=== PATIENT | female | born 1960 | race Caucasian/White ===

== ENCOUNTER → 2023-12-12 12:00 | Outpatient (REF) | payer OTHER, SELFPAY | LOC: HWRAD 12:00 | PROVIDERS: ATTENDING PHYSICIAN Family Medicine | DX: Z78.0 Asymptomatic menopausal state (principal) | CPT/HCPCS: 77080 ==

== ENCOUNTER 2024-08-17 02:44 | Inpatient (IN) | payer OTHER, SELFPAY ==
[2024-08-16 19:59] VITALS: BP 129/79; BMI 23.2
--- NOTE | 2024-08-16 20:00 | ED.GENMED ---
History of Present Illness
General
Chief Complaint: Alcohol Problem
Source: patient and ambulance crew
Exam Limitations: none
Time Seen by Provider: 08/16/24 20:00
History of Present Illness
History of Present Illness:
See MDM
Past History
Past History
ED Past Medical History: Fibromyalgia, Psychiatric (Anxiety), Other (DVT PE) and Other (History of migraines, Lyme disease in 2004. Alcohol abuse)
ED Past Surgical History: Cholecystectomy and Gynecological
Social History
Tobacco: Former smoker
Alcohol: Chronic alcoholic (last alcohol intake)
Drug: None
Personal:
Living: with family
Employment: Employed
Family History
Family History: Hypertension and CAD
Phy Exam
Physical Exam
Physical Exam:
See MDM
Scores
Withdrawal Assessment of Alcohol
Withdrawal Assessment Completed?: Not applicable
Course
Orders/Labs/Results
Orders:
Orders
08/16/24 21:21
CR Chest Portable - 1 View Urgent
Comment:
Reason For Exam: cough, hypothermic
Reason Study Needs to be Portable: Patient Unstable
08/16/24 21:53
Complete Blood Count/With Diff Urgent
Comprehensive Metabolic Panel Urgent
Free T4 Urgent
Lactic Acid Q4H
Comment: CANCEL 2nd LACTIC ACID IF 1st LACTIC ACID IS LESS THAN 2
TSH Reflex To Free T4 Urgent
Comment: ADDON
Blood Culture Q30M
CHRIS Source: Blood/Venous
Specimen Description:
Blood Culture Q30M
CHRIS Source: Blood/Venous
Specimen Description:
08/16/24 22:16
Add On- LAB Urgent
Tests Added?: TSH reflex Free T4
08/16/24 22:18
0.9% Sodium Chloride 1000 ml [Nss] 1,000 ml IV BOLUS
08/16/24 23:00
0.9% Sodium Chloride 1000 ml [Nss] 1,000 ml Mvi, Adult [Multivitamin] 10 ml Thiamine Injection 100 mg IV 250 mls/hr
08/16/24 23:46
Ondansetron Injectable [Zofran] 4 mg .ROUTE .STK-MED ONE
Ondansetron Injectable [Zofran] 4 mg IV NOW STA
08/17/24 00:02
CT Abd/pelvis W Iv Cont Urgent
Reason For Exam: hypothermic, abd pain
CT Head W/o Iv Contrast Urgent
Reason For Exam: altered
08/17/24 01:30
Lactic Acid Q4H
Comment: CANCEL 2nd LACTIC ACID IF 1st LACTIC ACID IS LESS THAN 2
08/17/24 01:31
Lorazepam [Ativan] 1 mg IV NOW STA
08/17/24 01:50
Add On- LAB Urgent
Tests Added?: B-hydroxybuterate
Abnormal Lab Results
08/16/24
21:53
WBC 12.0 H 10^3/uL
(4.8-10.8)
MCHC 32.7 L g/dL
(33.0-37.0)
Abs Immat Gran (auto) 0.1 H 10^3/uL
(0-0.05)
Absolute Neuts (auto) 10.7 H 10^3/uL
(1.4-6.5)
Absolute Lymphs (auto) 1.0 L 10^3/uL
(1.2-3.4)
Immature Gran % 0.6 H %
(0-0.5)
Neutrophils % 89.2 H %
(42.2-75.2)
Lymphocytes % 7.9 L %
(20.5-51.1)
Carbon Dioxide 18 L mmol/L
(22-30)
BUN 19 H mg/dl
(7-17)
Lactic Acid 5.5 H* mmol/L
(0.7-2.0)
AST 71 H U/L
(14-36)
Albumin 5.1 H g/dl
(3.5-5.0)
TSH (Reflex) < 0.02 L uIU/ml
(0.47-4.68)
08/16/24 21:53
08/16/24 21:53
Vital Signs
Initial and Last Documented VS:
Initial Vital Signs
Pulse Resp BP Pulse Ox
73 27 129/79 100
08/16/24 19:59 08/16/24 19:59 08/16/24 19:59 08/16/24 19:59
Last Documented Vital Signs
Temp Pulse Resp BP Pulse Ox
97.7 F 79 13 115/66 98
08/17/24 01:19 08/17/24 01:30 08/17/24 01:30 08/17/24 01:14 08/17/24 01:30
MDM/Problems Addressed
Differential Diagnosis Includes:
HPI and MDM Narrative:
64-year-old female presenting by EMS for evaluation of intoxication. Patient states she drank too much tequila today and did not feel well so she called 911. Patient denies any trauma. On exam, she is clearly intoxicated. She denies any
significant complaint other than 'not feeling well'
Physical exam
General: Intoxicated but answering questions and holding a conversation
HEENT: protecting airway. No evidence of trauma
Neck: supple
CV: No evidence of cyanosis
Resp: No accessory muscle use
Abd: Non-distended
Extremities: No deformities
Neuro: alert
Psych: Anxious
Skin: Cool
Problems Addressed including Acute and Chronic Conditions affecting care:
1. Alcohol intoxication
Acuity: acute
Prognosis: stable
Details: No evidence of trauma. Will continue to monitor
2. Hypothermic
Acuity: acute
Prognosis: unstable
Details: Patient requiring Penny hugger
Updates
On arrival, patient found to be hypothermic requiring the bear hugger. Will obtain basic blood work including lactic acid. Will look for signs of infection
10:20 PM patient shown to have significant lab issues such as a lactic acid of 5.5. at bedside states that she is recovering alcoholic. Patient admits to excessive alcohol use today and did not eat. There is a concern that she has alcohol
ketoacidosis. Will start banana bag and obtain CT
Differential Diagnosis (but not limited to): Alcohol intoxication, depression, anxiety, alcohol ketoacidosis, sepsis
Testing considered: CT head but she denies head trauma
Drug therapy (if applicable): OTC meds, please see d/c instruction regarding Rx drugs
Amount and/or Complexity of Data Reviewed
Clinical info obtained from: Patient and EMS
External data reviewed: N/A
Labs I independently reviewed (but not limited to): [Elevated lactic acid
Radiology: The CT scan was personally and independently reviewed. In addition, official CT report reviewed.
X-ray independently reviewed: Chest x-ray clear
Pulse Ox: not hypoxic
EKG independently reviewed: N/A
Able Bodied Tankerman: Sinus rhythm
Critical Care: N/A
Risk of Complication:
Social Determinants of health: Good social support
Discussed with other providers: Hospitalist
Escalation of Care includes Admit/Obs: given her hypothermia and lab abnormalities, will admit
Occasional wrong word or 'sound a like' substitutions may have occurred due to the inherent limitations of voice recognition software. Read the chart carefully and recognize, using context, where substitutions have occurred.
*Critical Care Note
Total Time (30-74mins, 75-104mins- exclusive of procedures): Not Applicable
ED Attending Note
-
Portions of this chart may have been created with voice recognition software.� Occasional wrong word or��sound alike� substitutions may have occurred due to the inherent limitations of voice recognition software.
Discharge Plan
Departure
Patient Disposition: Admit
Date of Disposition: 08/17/24
Time of Disposition: 01:51
Presentation/result/management discussed w/ accepting MD/DO: Hospitalist
Discharge Problem:
Hypothermia, Alcohol intoxication
Prescriptions:
No Action
biotin 1 MG tablet
1 mg PO DAILY
sumatriptan succinate [Imitrex] 100 MG tablet
100 mg PO DAILYPRN PRN (Reason: migraine)
omeprazole 40 MG capsule,delayed release(DR/EC)
40 mg PO HS
Aimovig Autoinjector 140 MG/ML auto-injector
140 mg SQ MONTHLY
Rx Instructions:
10/10/2023, 3rd day of every month.
ferrous sulfate 325 mg (65 mg iron) Tablet
325 mg PO HS
escitalopram oxalate 20 mg tablet
20 mg PO DAILY
vitamin B complex Tablet
1 tab PO DAILY
tramadol 50 mg Tablet
50 mg PO TID
Patient Comments:
10/10/2023, pt. states to take this med. TID although it is prescribed Q8HPRN. Pt. filled this med. on 09/04/2023 for 90 tablets according to PDMP.
rosuvastatin [Crestor] 20 mg Tablet
20 mg PO DAILY
Gemtesa 75 mg Tablet
75 mg PO DAILY
Veozah 45 mg Tablet
45 mg PO DAILY
polyethylene glycol 3350 [Miralax] 17 gram Powder In Packet
17 g PO DAILY PRN (Reason: constipation)
hydroxyzine pamoate 25 mg Capsule
50 mg PO HS PRN (Reason: mild anxiety)
hydroxyzine pamoate 25 mg Capsule
75 mg PO HS PRN (Reason: severe anxiety)
Enbrel SureClick 50 mg/mL (1 mL) Pen Injector
50 mg SC Q10D
Eliquis 2.5 mg Tablet
2.5 mg PO BID
sucralfate 100 mg/mL suspension
10 ml PO ACHS Qty: 200 0RF
Referrals:
UNKNOWN - PT NOT,INTERVIEWE [Family Provider] -
Interventions
Interventions:
*Risk Screen - Suicide Last Done: 08/16/24 20:02
*General Assessment Last Done: 08/16/24 20:02
*Neglect/Abuse Screening Last Done: 08/16/24 20:02
*ED COVID-19 Vaccine History Last Done: 08/16/24 20:02
ED- Neurological Assessment Last Done: 08/16/24 20:10
ED-Psychological Assessment Last Done: 08/16/24 20:10
Discharge Date and Time
Print Language: CHINESE
[2024-08-16 20:01] VITALS: BP 129/79
[2024-08-16 21:00] VITALS: BP 121/56
[2024-08-16 22:01] VITALS: BP 134/87
[2024-08-16 22:03] LABS: % Basophils 0.3 % (0-2); % Eosinophils 0.1 % (0-6); % Immature Granulocytes 0.6 % (0-0.5); % Lymphocytes 7.9 % (20.5-51.1); % Monocytes 1.9 % (1.7-9.3); % Neutrophils 89.2 % (42.2-75.2); Absolute Immature Granulocytes 0.1 10^3/uL (0-0.05); Absolute Monocytes 0.2 10^3/uL (0.1-0.6); Absolute Neutrophils 10.7 10^3/uL (1.4-6.5); Hematocrit 44.9 % (37.0-47.0); Hemoglobin 14.7 g/dL (12.0-16.0); Mean Corp Hgb Conc. 32.7 g/dL (33.0-37.0); Mean Corpuscular Hgb 30.1 pg (27.0-31.0); Mean Corpuscular Volume 91.8 fL (81.0-99.0); Mean Platelet Volume 8.4 fL (7.4-10.4); Nucleated Red Blood Cells % 0 %; Platelet Count 287 10^3/uL (130-400); Red Blood Cell Count 4.89 10^6/uL (4.20-5.40); Red Cell Dist. Width 13.8 % (11.5-14.5)
[2024-08-16 22:16] LABS: ALT (SGPT) 32 U/L (0-35); AST (SGOT) 71 U/L (14-36); Albumin 5.1 g/dl (3.5-5.0); Alkaline Phosphatase 79 U/L (38-126); Blood Urea Nitrogen 19 mg/dl (7-17); Calcium 9.7 mg/dl (8.4-10.2); Carbon Dioxide 18 mmol/L (22-30); Chloride 106 mmol/L (98-107); Estimated Creatinine Clearance 65 ml/min; Glucose 71 mg/dl (70-99); Potassium 4.6 mmol/L (3.5-5.1); Sodium 145 mmol/L (135-145); Total Bilirubin 0.3 mg/dl (0.2-1.3); Total Protein 7.6 g/dl (6.3-8.2); eGFR > 60.00
[2024-08-16 22:17] LABS: Lactic Acid 5.5 mmol/L (0.7-2.0)
[2024-08-16] MEDS: NSS 1000 IV (22:25)
[2024-08-16 23:00] VITALS: BP 106/62
[2024-08-16] MEDS: MULTIVITAMIN 1011 ML IV (23:16)
[2024-08-16] MEDS: MULTIVITAMIN 1011 MG IV (23:16)
[2024-08-16 23:40] LABS: TSH Reflex To Free T4 < 0.02 uIU/ml (0.47-4.68)
[2024-08-16] MEDS: ZOFRAN 4 MG IV (23:47)
[2024-08-17] VITALS (12 sets, daily range): BP systolic 104–136; BP diastolic 66–82; BMI 23.2
[2024-08-17 00:09] LABS: Free T4 1.17 ng/dl (0.78-2.19)
[2024-08-17] MEDS: ATIVAN 1 MG IV ×5 (01:35→12:16)
--- NOTE | 2024-08-17 02:39 | HPS.HSE ---
Family Physician
-
Family Physician: INTERVIEWE UNKNOWN - PT NOT
Chief Complaint
-
Alcohol Disorder
History of Present Illness
Patient is a 64y F with PMH significant for anxiety / depression, rheumatoid arthritis and alcohol use disorder who presents to ED after being found down at home by her son. Patient states that she drank 1/5 of tequila Saturday into Saturday.
This AM she took THC gummy in an attempt to get to sleep. She states that she had headache all day today and this evening she began to feel nauseated. She went into the bathroom this evening feeling nauseated and sat down on the floor. Patient
states that she became profusely diaphoretic and lightheaded. She had a single episode of non-bloody emesis. She states that she lie down on the cool floor and the next thing she knew she was being roused by her son and EMS was called.
At present, patient is resting in the ED. She complains of mild abdominal discomfort and nausea.
Patient notes that she drinks in seclusion every other day or so. Her last drink was very early Saturday AM.
Medical History
Past Medical History
Past Medical History: Reports Other
Additional Past Medical History:
Rheumatoid Arthritis
Fibromyalgia
Migraine Headaches
Collagenous Colitis
History of DVT / PE
Anxiety / Depression
Past Surgical History: Reports Other
Additional Past Surgical History:
Bladder Sling
RADHA
Cholecystectomy
Bunionectomy
Sinus Surgery
Breast Augmentation
Left Ureteroscopy with Stent
Social History
Tobacco: Former Smoker (Quit smoking about 20 years ago.)
Alcohol: Chronic Alcoholic (Drinks 1/2 - 1 bottle of tequile every other day or so.)
Drug: Other (Uses THC gummies regularly.)
Family History
Family History: Not pertinent
Allergies / Home Medications
Allergies reflects when Allergies were last updated in [facility].
Home Medications with original date entered in [facility]
Allergy/Medication List:
Allergies
Allergy/AdvReac Type Severity Reaction Status Date / Time
cefuroxime axetil Allergy Rash Verified 10/09/23 23:53
[From Ceftin]
codeine Allergy 'severe Verified 10/09/23 23:53
abd pain'
gluten Allergy Nausea / Verified 10/09/23 23:53
Vomiting
mold Allergy Shortness Verified 10/09/23 23:53
of Breath
morphine Allergy Itching Verified 10/09/23 23:53
oxycodone HCl [From Percocet] Allergy Itching Verified 10/09/23 23:53
Home Medications
biotin 1 mg tablet 1 mg PO DAILY Supplement 07/27/20
escitalopram oxalate 20 mg tablet 20 mg PO DAILY Depression 02/11/23
vitamin B complex 1 tab PO DAILY Supplement 02/11/23
apixaban 2.5 mg tablet (Eliquis) 2.5 mg PO BID Blood Clot Prevention/Tx 10/10/23
hydroxyzine pamoate 25 mg capsule 50 mg PO QIDPRN PRN mild anxiety 10/10/23
solifenacin 10 mg tablet (Vesicare) 10 mg PO DAILY 08/17/24
Review of Systems
-
History Source: Patient
A 12 point ROS was completed and negative except as noted: Yes
Constitutional: Reports Fatigue; Denies Fever or Chills
EENT: Denies Sore Throat
Respiratory: Denies Cough or Trouble Breathing
Cardiac: Denies Chest Pain or Palpitations
Abdomen/GI: Reports Abdominal Pain, Nausea and Vomiting; Denies Diarrhea, Constipated, Bloody Stools or Black Stools
: Denies Dysuria or Frequency
Musculoskeletal: Denies Joint Pain or Edema
Neurological: Reports Dizzy, Headache and Weakness; Denies Numbness
Psych: Denies Depression or Anxiety
Physical Exam
Vital Signs
Vital Signs
Temp Pulse Resp BP Pulse Ox
97.7 F 94 17 104/67 98
08/17/24 01:19 08/17/24 02:30 08/17/24 02:30 08/17/24 02:00 08/17/24 02:30
Physical Exam
General: Other (64y F in no acute distress.)
HEENT: Moist mucous membranes and PERRLA
Respiratory: Clear; No Wheezes, Rales or Rhonchi
Cardiac: S1/S2 and Regular Rhythm; No Murmur
GI: Soft, Non Tender, Non Distended and Normal Bowel Sounds
Musculoskeletal: No Clubbing, No Cyanosis and No Edema
Neuro: AO x 3 and Nonfocal/grossly intact
Laboratory Results
-
08/16/24 21:53
08/16/24 21:53
Laboratory Results
Lactic Acid 5.5 mmol/L (0.7-2.0) H* 08/16/24 21:53
Total Bilirubin 0.3 mg/dl (0.2-1.3) 08/16/24 21:53
AST 71 U/L (14-36) H 08/16/24 21:53
ALT 32 U/L (0-35) 08/16/24 21:53
Alkaline Phosphatase 79 U/L (38-126) 08/16/24 21:53
Impression/Plan
-
A/P: Patient is a 64y F with PMH significant for alcohol use disorder who presents to ED after being found unresponsive on the floor of her bathroom this evening.
Alcohol Use Disorder
Lactic Acidosis
Unresponsive
- Admit for further evaluation and treatment.
- Similar prior episodes / admissions.
- Anion gap acidosis with moderate elevation in lactate.
- IVF support and follow for improvement in labs / lytes.
- Thiamine, folate, MVI replacement.
- Encourage complete cessation from alcohol.
- Follow for clinical improvement.
Migraine Headaches
Fibromyalgia
Rheumatoid Arthritis
- Stable. No longer on Enbrel per patient.
- Monitor for any new complaints / symptoms.
Anxiety / Depression
- Continue current regimen of Lexapro / hydroxyzine.
- Check EKG for QTc and monitor on telemetry.
History of DVT / PE
DVT Prophylaxis
- Continue Eliquis
Code Status: Full
[2024-08-17 02:46] LABS: Alcohol None Detected; Lactic Acid 1.2 mmol/L (0.7-2.0)
[2024-08-17 03:10] LABS: Lipase 92 U/L (23-300)
[2024-08-17 03:17] LABS: B-Hydroxybutyrate 1.18 mmol/L (0.02-0.27)
[2024-08-17 03:51] LABS: Creatine Phosphokinase 182 U/L (30-135)
[2024-08-17] MEDS: NSS (PRESERVATIVE FREE) 0.5 ML IV (05:57)
--- NOTE | 2024-08-17 06:16 | PTCARENOTE ---
Pt admitted to 338-1 and pivoted from stretcher to bed x2. Pt very tremulous and unsteady. Pt placed on bsc x2, almost fell forward but was caught by staff. Bed alarm placed for safety and pt instructed to call staff for toileting. MSAS 8, PRN
ativan given per protocol (see MAR). Pt aaox3 and VSS. IVF to be hung once verified by pharmacy. Call reyes and bed alarm in place. Plan of care ongoing.
[2024-08-17 06:31] LABS: Urine Albumin Negative (Neg - Trace); Urine Bilirubin Negative (Negative); Urine Character Clear (Clear); Urine Color Yellow; Urine Glucose Negative (Negative); Urine Ketone 3+ (Negative); Urine Leukocyte Negative (Negative); Urine Nitrite Negative (Negative); Urine Occult Blood Negative (Negative); Urine Specific Gravity 1.015 (<1.030); Urine Urobilinogen Negative (Neg - 1+)
[2024-08-17] MEDS: D5/0.9% SODIUM CHLORIDE 1000 IV ×2 (06:31→16:13)
[2024-08-17 08:41] LABS: Hematocrit 35.9 % (37.0-47.0); Hemoglobin 12.2 g/dL (12.0-16.0); Mean Corpuscular Hgb 30.8 pg (27.0-31.0); Mean Corpuscular Volume 90.7 fL (81.0-99.0); Mean Platelet Volume 8.9 fL (7.4-10.4); Platelet Count 285 10^3/uL (130-400); Red Blood Cell Count 3.96 10^6/uL (4.20-5.40); Red Cell Dist. Width 13.8 % (11.5-14.5); White Blood Cell Count 7.1 10^3/uL (4.8-10.8)
[2024-08-17 08:49] LABS: ALT (SGPT) 29 U/L (0-35); AST (SGOT) 49 U/L (14-36); Albumin 3.9 g/dl (3.5-5.0); Alkaline Phosphatase 55 U/L (38-126); Blood Urea Nitrogen 20 mg/dl (7-17); Calcium 8.4 mg/dl (8.4-10.2); Carbon Dioxide 15 mmol/L (22-30); Chloride 108 mmol/L (98-107); Direct Bilirubin 0.1 mg/dl (0.0-0.4); Estimated Creatinine Clearance 65 ml/min; Glucose 79 mg/dl (70-99); Magnesium 1.8 mg/dl (1.6-2.3); Phosphorus 4.3 mg/dl (2.5-4.5); Potassium 5.2 mmol/L (3.5-5.1); Sodium 138 mmol/L (135-145); Total Bilirubin 0.5 mg/dl (0.2-1.3); eGFR > 60.00
[2024-08-17] MEDS: DETROL LA 4 MG PO (08:52)
[2024-08-17] MEDS: FOLVITE 1 MG PO (08:53)
[2024-08-17] MEDS: LEXAPRO 20 MG PO (08:53)
[2024-08-17] MEDS: PROTONIX 40 MG PO (08:53)
[2024-08-17] MEDS: ELIQUIS 2.5 MG PO ×2 (08:53→21:18)
[2024-08-17] MEDS: THIAMINE INJECTION 200 MG IV ×2 (08:54→21:18)
[2024-08-17] MEDS: TYLENOL 650 MG PO ×3 (09:22→23:00)
[2024-08-17 09:24] LABS: B-Hydroxybutyrate 3.21 mmol/L (0.02-0.27)
[2024-08-17] MEDS: PHENOBARBITAL 104 MG IV (13:06)
--- NOTE | 2024-08-17 15:37 | CM ---
Alert awake oriented patient who lives with her Rakesh in a 2 story home with 1 step to enter and 13 steps to bed/bathroom. She is independent in driving and all activates of daily living.Offered [facility] and she said yes. Spoke
with Tong who will see her in room
No adaptive devices .
NO VN in past . No SNF hx
Pharmacy [facility]
PCP Dr CHAMPAGNE
PLAN Home with [facility] resources
--- NOTE | 2024-08-17 16:48 | W.PN.HOSP.TC ---
Today's Communication/Plan
-
Alcohol withdrawal protocol with addition of phenobarbital.
IV hydration
Follow BMP.
Assessment / Plan
Assessment / Plan
Impression:
Patient is a 64y F with PMH significant for alcohol use disorder who presents to ED after being found unresponsive on the floor of her bathroom this evening.
Alcohol withdrawal.
Severe alcohol use disorder.
Lactic acidosis/ketoacidosis secondary to above
Toxic metabolic encephalopathy secondary to alcohol
Other conditions:
Migraine headaches.
Fibromyalgia
Rheumatoid arthritis.
Anxiety/depression.
History of DVT/PE on anticoagulation with Eliquis
Plan:
Severe alcohol use disorder with impending delirium tremens and lactic acidosis.
Toxic metabolic encephalopathy, found unresponsive at home.
Mental status improved.
Continue MSAS with lorazepam
Start phenobarbital taper
Continue IV thiamine
Continue IV fluids
Monitor oral intake and follow BMP.
Migraine Headaches
Fibromyalgia
Rheumatoid Arthritis
- Stable. No longer on Enbrel per patient.
- Monitor for any new complaints / symptoms.
Anxiety / Depression
- Continue current regimen of Lexapro / hydroxyzine.
- Check EKG for QTc and monitor on telemetry.
History of DVT / PE
DVT Prophylaxis
- Continue Eliquis
Code Status: Full
Anticipated Discharge: 24 - 48 hours
Subjective/Interval History
-
Date of Service: August 17, 2024
Objective Data
-
Labs:
Laboratory Results
08/17/24
08:11
WBC 7.1
Hgb 12.2
Hct 35.9 L
Plt Count 285
Sodium 138
Potassium 5.2 H
Chloride 108 H
Carbon Dioxide 15 L
BUN 20 H
Creatinine 0.9
Glucose 79
Calcium 8.4
Total Bilirubin 0.5
AST 49 H
ALT 29
Alkaline Phosphatase 55
Vital Signs:
Vital Signs
Temp Pulse Resp BP Pulse Ox
97.9 F 95 18 109/71 98
08/17/24 15:15 08/17/24 15:15 08/17/24 15:15 08/17/24 15:15 08/17/24 15:15
Physical Exam
-
General: Well Developed and No Apparent Distress
HEENT: Normocephalic, Atraumatic and Moist Mucous Membranes
Respiratory: Clear to Auscultation
Cardiac: Regular Rhythm and S1/S2; Negative Murmur, Rub or Gallop
GI: Soft, Nontender, Nondistended and Normal Bowel Sounds; Negative Organomegaly
Rectal: Deferred by Provider
Musculoskeletal: No Clubbing, No Cyanosis and No Edema
Skin: Negative Rash
Neuro: Awake, Alert, Oriented, AO x 3, Tremors and Nonfocal/Grossly Intact
Psych: Anxious
[2024-08-17] MEDS: PHENOBARBITAL 97.5 MG IV (23:24)
[2024-08-18] MEDS: D5/0.9% SODIUM CHLORIDE 1000 IV ×2 (01:02→09:04)
[2024-08-18 03:00] VITALS: BP 100/70
[2024-08-18 06:00] VITALS: BMI 23.8
[2024-08-18 06:49] LABS: % Basophils 0.8 % (0-2); % Eosinophils 1.2 % (0-6); % Immature Granulocytes 0.2 % (0-0.5); % Lymphocytes 45.6 % (20.5-51.1); % Monocytes 9.8 % (1.7-9.3); % Neutrophils 42.4 % (42.2-75.2); Absolute Eosinophils 0.1 10^3/uL (0-0.7); Absolute Lymphocytes 2.2 10^3/uL (1.2-3.4); Absolute Monocytes 0.5 10^3/uL (0.1-0.6); Hematocrit 33.3 % (37.0-47.0); Hemoglobin 11.1 g/dL (12.0-16.0); Mean Corp Hgb Conc. 33.3 g/dL (33.0-37.0); Mean Corpuscular Hgb 30.2 pg (27.0-31.0); Mean Corpuscular Volume 90.7 fL (81.0-99.0); Mean Platelet Volume 9.1 fL (7.4-10.4); Nucleated Red Blood Cells % 0 %; Platelet Count 236 10^3/uL (130-400); Red Blood Cell Count 3.67 10^6/uL (4.20-5.40); Red Cell Dist. Width 13.8 % (11.5-14.5); White Blood Cell Count 4.8 10^3/uL (4.8-10.8)
[2024-08-18 07:12] LABS: ALT (SGPT) 25 U/L (0-35); AST (SGOT) 40 U/L (14-36); Albumin 3.3 g/dl (3.5-5.0); Alkaline Phosphatase 50 U/L (38-126); Blood Urea Nitrogen 12 mg/dl (7-17); Calcium 8.5 mg/dl (8.4-10.2); Carbon Dioxide 25 mmol/L (22-30); Chloride 108 mmol/L (98-107); Estimated Creatinine Clearance 65 ml/min; Glucose 118 mg/dl (70-99); Potassium 4.8 mmol/L (3.5-5.1); Sodium 140 mmol/L (135-145); Total Bilirubin 0.7 mg/dl (0.2-1.3); Total Protein 5.3 g/dl (6.3-8.2); eGFR > 60.00
[2024-08-18] MEDS: PROTONIX 40 MG PO (08:06)
[2024-08-18] MEDS: PHENOBARBITAL 97.5 MG IV ×3 (08:06→22:57)
[2024-08-18] MEDS: DETROL LA 4 MG PO (08:06)
[2024-08-18] MEDS: LEXAPRO 20 MG PO (08:06)
[2024-08-18] MEDS: ELIQUIS 2.5 MG PO ×2 (08:06→20:05)
[2024-08-18] MEDS: FOLVITE 1 MG PO (08:06)
[2024-08-18] MEDS: THIAMINE INJECTION 200 MG IV ×2 (08:08→20:06)
[2024-08-18 08:20] VITALS: BP 111/80
[2024-08-18] MEDS: TYLENOL 650 MG PO ×2 (08:29→16:11)
[2024-08-18 11:09] VITALS: BP 143/84
[2024-08-18] MEDS: ATIVAN 1 MG PO (12:53)
--- NOTE | 2024-08-18 14:12 | PN.CDI ---
CDI
- -
CDI:
Physician Documentation Request
Admit Date: 08/17/24 02:44
Dear Doctor Mahnaz,
Please review the following and provide your response in the progress notes.
Clinical Indicators:
- 08/16 H&P 'she lie down on the cool floor and the next thing she knew she was being roused by her son'
- Time on floor undocumented
- 08/17 PN 'presents to ED after being found unresponsive on the floor of her bathroom this evening'
- 'Lactic acidosis/ketoacidosis'
- 6L IVF given
Laboratory Tests
08/17/24
02:22
Creatine Kinase 182 H
Please provide a diagnosis for the above lab values that were monitored and treatment rendered:
Traumatic rhabdomyolysis
Non traumatic rhabdomyolysis
Clinically insignificant abnormal lab value
Other (please specify)
Use of terms such as suspected, likely, concern for, or probable (associated with a specific diagnosis that is being evaluated, monitored, or treated as if it exists) are acceptable and can be coded in the inpatient setting, when documented at the
time of discharge.
Thank you,
Juan Manuel Waterman RN
CDI Specialist
Please use your independent medical judgment in providing your response.
--- NOTE | 2024-08-18 14:31 | W.PN.HOSP.TC ---
Today's Communication/Plan
-
Electrolytes and metabolic acidosis improving with volume expansion.
Continue IV fluids
Monitor oral intake
Continue alcohol withdrawal protocol including lorazepam and phenobarbital
Physical therapy assessment
Case management consultation for options for alcohol use disorder treatment.
Assessment / Plan
Assessment / Plan
Impression:
Patient is a 64y F with PMH significant for alcohol use disorder who presents to ED after being found unresponsive on the floor of her bathroom this evening.
Alcohol withdrawal.
Severe alcohol use disorder.
Lactic acidosis/ketoacidosis secondary to above
Toxic metabolic encephalopathy secondary to alcohol
Other conditions:
Migraine headaches.
Fibromyalgia
Rheumatoid arthritis.
Anxiety/depression.
History of DVT/PE on anticoagulation with Eliquis
Plan:
Severe alcohol use disorder with impending delirium tremens and lactic acidosis.
Toxic metabolic encephalopathy, found unresponsive at home.
Mental status improved.
Continue MSAS with lorazepam
Start phenobarbital taper
Continue IV thiamine
Continue IV fluids
Monitor oral intake and follow BMP.
Migraine Headaches
Fibromyalgia
Rheumatoid Arthritis
- Stable. No longer on Enbrel per patient.
- Monitor for any new complaints / symptoms.
Anxiety / Depression
- Continue current regimen of Lexapro / hydroxyzine.
- Check EKG for QTc and monitor on telemetry.
History of DVT / PE
DVT Prophylaxis
- Continue Eliquis
Code Status: Full
Anticipated Discharge: 24 - 48 hours
Subjective/Interval History
-
Date of Service: August 18, 2024
Objective Data
-
Labs:
Laboratory Results
08/18/24
05:40
WBC 4.8
Hgb 11.1 L
Hct 33.3 L
Plt Count 236
Sodium 140
Potassium 4.8
Chloride 108 H
Carbon Dioxide 25
BUN 12
Creatinine 0.9
Glucose 118 H
Calcium 8.5
Total Bilirubin 0.7
AST 40 H
ALT 25
Alkaline Phosphatase 50
Vital Signs:
Vital Signs
Temp Pulse Resp BP Pulse Ox
97.9 F 87 17 143/84 99
08/18/24 11:09 08/18/24 11:09 08/18/24 11:09 08/18/24 11:09 08/18/24 11:09
I&O
08/17/24 08/18/24 08/19/24
06:59 06:59 06:59
Intake Total 3240 / 3240 1979
Output Total 650 / 650
Balance 2590 / 2590 1979
Physical Exam
-
General: Well Developed and No Apparent Distress
HEENT: Normocephalic, Atraumatic and Moist Mucous Membranes
Respiratory: Clear to Auscultation
Cardiac: Regular Rhythm and S1/S2; Negative Murmur, Rub or Gallop
GI: Soft, Nontender, Nondistended and Normal Bowel Sounds; Negative Organomegaly
Rectal: Deferred by Provider
Musculoskeletal: No Clubbing, No Cyanosis and No Edema
Skin: Negative Rash
Neuro: Awake, Alert, Oriented, AO x 3, Tremors and Nonfocal/Grossly Intact
Psych: Anxious
[2024-08-18 15:49] VITALS: BP 135/81
--- NOTE | 2024-08-18 16:31 | CM ---
Spoke with Jeffrey Ruiz he and associates have attempted to speak with pt but is sleeping each time.
Follow up with Sara to see if assessment done.
Continues with tending electrolytes.
Maintained on Phenobarbital taper.
PLAN To be determined by Sara
[2024-08-18 19:00] VITALS: BP 129/84
[2024-08-18 23:00] VITALS: BP 149/93
[2024-08-19 03:00] VITALS: BP 123/82
[2024-08-19 05:45] LABS: % Eosinophils 3.1 % (0-6); % Immature Granulocytes 0.4 % (0-0.5); % Lymphocytes 41.3 % (20.5-51.1); % Monocytes 13.4 % (1.7-9.3); % Neutrophils 40.8 % (42.2-75.2); Absolute Basophils 0.1 10^3/uL (0-0.2); Absolute Eosinophils 0.2 10^3/uL (0-0.7); Absolute Monocytes 0.7 10^3/uL (0.1-0.6); Hemoglobin 12.2 g/dL (12.0-16.0); Mean Corp Hgb Conc. 32.1 g/dL (33.0-37.0); Mean Corpuscular Hgb 29.6 pg (27.0-31.0); Mean Corpuscular Volume 92.2 fL (81.0-99.0); Mean Platelet Volume 8.7 fL (7.4-10.4); Nucleated Red Blood Cells % 0 %; Platelet Count 236 10^3/uL (130-400); Red Blood Cell Count 4.12 10^6/uL (4.20-5.40); Red Cell Dist. Width 13.7 % (11.5-14.5); White Blood Cell Count 4.9 10^3/uL (4.8-10.8)
[2024-08-19 06:00] VITALS: BMI 23.2
[2024-08-19 06:13] LABS: ALT (SGPT) 31 U/L (0-35); AST (SGOT) 49 U/L (14-36); Albumin 3.9 g/dl (3.5-5.0); Alkaline Phosphatase 50 U/L (38-126); Blood Urea Nitrogen 6 mg/dl (7-17); Calcium 9.4 mg/dl (8.4-10.2); Carbon Dioxide 29 mmol/L (22-30); Chloride 105 mmol/L (98-107); Estimated Creatinine Clearance 74 ml/min; Glucose 93 mg/dl (70-99); Potassium 5.1 mmol/L (3.5-5.1); Sodium 140 mmol/L (135-145); Total Bilirubin 0.5 mg/dl (0.2-1.3); eGFR > 60.00
[2024-08-19 07:40] VITALS: BP 116/74
[2024-08-19] MEDS: LEXAPRO 20 MG PO (08:06)
[2024-08-19] MEDS: ELIQUIS 2.5 MG PO ×2 (08:06→21:12)
[2024-08-19] MEDS: FOLVITE 1 MG PO (08:06)
[2024-08-19] MEDS: DETROL LA 4 MG PO (08:06)
[2024-08-19] MEDS: PROTONIX 40 MG PO (08:10)
[2024-08-19] MEDS: COMPAZINE 5 MG IV (08:10)
[2024-08-19] MEDS: THIAMINE INJECTION 200 MG IV ×2 (08:11→21:13)
[2024-08-19] MEDS: PHENOBARBITAL 97.5 MG IV ×2 (08:11→16:20)
[2024-08-19] MEDS: ATIVAN 1 MG PO (10:28)
[2024-08-19 11:04] VITALS: BP 138/64
[2024-08-19 14:53] VITALS: BP 129/95
--- NOTE | 2024-08-19 16:00 | CM ---
[facility] counselor attempted to speak with patient about Rehab today; patient asked counselor to come back tomorrow.
--- NOTE | 2024-08-19 16:32 | W.PN.HOSP.TC ---
Today's Communication/Plan
-
Mentation improved.
Metabolically improved.
Continue phenobarbital taper
Continue MSAs protocol with lorazepam
Monitor oral intake and if sufficient wean off IV fluids
Follow-up BMP for
Discharge planning in terms of alcohol rehab
Assessment / Plan
Assessment / Plan
Impression:
Patient is a 64y F with PMH significant for alcohol use disorder who presents to ED after being found unresponsive on the floor of her bathroom this evening.
Alcohol withdrawal.
Severe alcohol use disorder.
Lactic acidosis/ketoacidosis secondary to above
Toxic metabolic encephalopathy secondary to alcohol
Other conditions:
Migraine headaches.
Fibromyalgia
Rheumatoid arthritis.
Anxiety/depression.
History of DVT/PE on anticoagulation with Eliquis
Plan:
Severe alcohol use disorder with impending delirium tremens and lactic acidosis.
Toxic metabolic encephalopathy, found unresponsive at home.
Mental status improved.
Continue MSAS with lorazepam
Start phenobarbital taper
Continue IV thiamine
Wean off IV fluids if sufficient oral intake
Monitor oral intake and follow BMP.
Migraine Headaches
Fibromyalgia
Rheumatoid Arthritis
- Stable. No longer on Enbrel per patient.
- Monitor for any new complaints / symptoms.
Anxiety / Depression
- Continue current regimen of Lexapro / hydroxyzine.
- Check EKG for QTc and monitor on telemetry.
History of DVT / PE
DVT Prophylaxis
- Continue Eliquis
Code Status: Full
Anticipated Discharge: 24 - 48 hours
Subjective/Interval History
-
Date of Service: August 19, 2024
Objective Data
-
Labs:
Laboratory Results
08/19/24
05:19
WBC 4.9
Hgb 12.2
Hct 38.0
Plt Count 236
Sodium 140
Potassium 5.1
Chloride 105
Carbon Dioxide 29
BUN 6 L
Creatinine 0.8
Glucose 93
Calcium 9.4
Total Bilirubin 0.5
AST 49 H
ALT 31
Alkaline Phosphatase 50
Vital Signs:
Vital Signs
Temp Pulse Resp BP Pulse Ox
99.0 F 95 16 129/95 99
08/19/24 14:53 08/19/24 14:53 08/19/24 14:53 08/19/24 14:53 08/19/24 14:53
I&O
08/18/24 08/19/24 08/20/24
06:59 06:59 06:59
Intake Total 3240 / 3240 1979 960 / 960
Output Total 650 / 650
Balance 2590 / 2590 1979 960 / 960
Physical Exam
-
General: Well Developed and No Apparent Distress
HEENT: Normocephalic, Atraumatic and Moist Mucous Membranes
Respiratory: Clear to Auscultation
Cardiac: Regular Rhythm and S1/S2; Negative Murmur, Rub or Gallop
GI: Soft, Nontender, Nondistended and Normal Bowel Sounds; Negative Organomegaly
Rectal: Deferred by Provider
Musculoskeletal: No Clubbing, No Cyanosis and No Edema
Skin: Negative Rash
Neuro: Awake, Alert, Oriented, AO x 3, Tremors and Nonfocal/Grossly Intact
Psych: Anxious
[2024-08-19 19:22] VITALS: BP 136/91
[2024-08-19] MEDS: LUMINAL 64.8 MG PO (21:13)
[2024-08-19 23:13] VITALS: BP 113/78
[2024-08-20 03:00] VITALS: BP 101/64
[2024-08-20 06:00] VITALS: BMI 22.6
[2024-08-20 07:32] VITALS: BP 115/77
[2024-08-20 07:36] LABS: Blood Urea Nitrogen 7 mg/dl (7-17); Calcium 9.5 mg/dl (8.4-10.2); Carbon Dioxide 29 mmol/L (22-30); Chloride 104 mmol/L (98-107); Estimated Creatinine Clearance 65 ml/min; Glucose 99 mg/dl (70-99); Sodium 140 mmol/L (135-145); eGFR > 60.00
[2024-08-20] MEDS: DETROL LA 4 MG PO (08:07)
[2024-08-20] MEDS: LUMINAL 64.8 MG PO (08:07)
[2024-08-20] MEDS: VITAMIN B1 100 MG PO (08:07)
[2024-08-20] MEDS: FOLVITE 1 MG PO (08:08)
[2024-08-20] MEDS: PROTONIX 40 MG PO (08:08)
[2024-08-20] MEDS: LEXAPRO 20 MG PO (08:08)
[2024-08-20] MEDS: ELIQUIS 2.5 MG PO (08:08)
[2024-08-20] MEDS: TYLENOL 650 MG PO (09:29)
[2024-08-20 11:04] VITALS: BP 127/87
[2024-08-20] MEDS: ATARAX 50 MG PO (12:24)
--- NOTE | 2024-08-20 14:16 | W.DS.TRANS ---
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
-
Discharge Instructions:
Discharge Diagnosis/Procedures Alcohol withdrawal.
Severe alcohol use disorder.
Lactic acidosis/ketoacidosis secondary to above
Toxic metabolic encephalopathy secondary to
alcohol
Other conditions:
Migraine headaches.
Fibromyalgia
Rheumatoid arthritis.
Anxiety/depression.
History of DVT/PE on anticoagulation with
Eliquis
Diet Regular
Instructions:
Stand-Alone Forms:
Changes to Home Medications: No
Discharge Medications:
DC Medications w/original date entered in [facility]
biotin 1 mg tablet 1 mg PO DAILY Supplement 07/27/20
escitalopram oxalate 20 mg tablet 20 mg PO DAILY Depression 02/11/23
vitamin B complex 1 tab PO DAILY Supplement 02/11/23
apixaban 2.5 mg tablet (Eliquis) 2.5 mg PO BID Blood Clot Prevention/Tx 10/10/23
hydroxyzine pamoate 25 mg capsule 50 mg PO QIDPRN PRN mild anxiety 10/10/23
solifenacin 10 mg tablet (Vesicare) 10 mg PO DAILY Urinary Issue 08/17/24
Home Medication Changes
Pending Results: No
[2024-08-20 15:15] VITALS: BP 153/96
--- NOTE | 2024-08-20 16:27 | CM ---
entered order for discharge.
Spoke with Jeffrey Ruiz he said pt hayley up for partial out pt [facility] 9am to 2:30 pm 5 days a week.Also give [facility] information.
Spoke with pt in room she said she would follow up with recovery program.
Esteban her will drive her home.
PLAN Home with out pt alcohol rehab program
== END 2024-08-20 16:24 | disposition home or self-care (01) | DRG 896 ==
LOC: 3 WEST ACU 02:44
PROVIDERS: ADMITTING PHYSICIAN Hospitalist; ATTENDING PHYSICIAN Internal Medicine; EMERGENCY PHYSICIAN Student in an Organized Health Care Education/Training Program
DX: F10.239 Alcohol dependence with withdrawal, unspecified (principal); G92.8 Other toxic encephalopathy; E87.29 Other acidosis; M62.82 Rhabdomyolysis; F10.229 Alcohol dependence with intoxication, unspecified; G43.909 Migraine, unspecified, not intractable, without status migrainosus; M79.7 Fibromyalgia; M06.9 Rheumatoid arthritis, unspecified; F32.A Depression, unspecified; F41.9 Anxiety disorder, unspecified; Z86.718 Personal history of other venous thrombosis and embolism; Z79.01 Long term (current) use of anticoagulants; Z87.891 Personal history of nicotine dependence; K52.831 Collagenous colitis; Z90.710 Acquired absence of both cervix and uterus; Z88.6 Allergy status to analgesic agent; I10 Essential (primary) hypertension; I25.10 Atherosclerotic heart disease of native coronary artery without angina pectoris; Z86.19 Personal history of other infectious and parasitic diseases; Y92.009 Unspecified place in unspecified non-institutional (private) residence as the place of occurrence of the external cause
CPT/HCPCS: 70450; 71045; 74177; 80048; 80053; 81003; 82010; 82077; 82248; 82550; 83605; 83690; 83735; 84100; 84439; 84443; 85025; 85027; 87040; 93005; 96361; 96374; 96375; 99285; Q9967

== ENCOUNTER → 2024-11-09 14:33 | Outpatient (REF) | payer OTHER, SELFPAY ==
[2024-11-09 16:05] LABS: % Basophils 0.6 % (0-2); % Eosinophils 1.1 % (0-6); % Immature Granulocytes 0.3 % (0-0.5); % Lymphocytes 38.6 % (20.5-51.1); % Monocytes 7.5 % (1.7-9.3); % Neutrophils 51.9 % (42.2-75.2); Absolute Basophils 0.1 10^3/uL (0-0.2); Absolute Eosinophils 0.1 10^3/uL (0-0.7); Absolute Lymphocytes 3.4 10^3/uL (1.2-3.4); Absolute Monocytes 0.7 10^3/uL (0.1-0.6); Absolute Neutrophils 4.6 10^3/uL (1.4-6.5); Hematocrit 40.5 % (37.0-47.0); Hemoglobin 13.4 g/dL (12.0-16.0); Mean Corp Hgb Conc. 33.1 g/dL (33.0-37.0); Mean Corpuscular Hgb 29.8 pg (27.0-31.0); Mean Corpuscular Volume 90.2 fL (81.0-99.0); Mean Platelet Volume 8.9 fL (7.4-10.4); Nucleated Red Blood Cells % 0 %; Platelet Count 359 10^3/uL (130-400); Red Blood Cell Count 4.49 10^6/uL (4.20-5.40); Red Cell Dist. Width 13.3 % (11.5-14.5); White Blood Cell Count 8.9 10^3/uL (4.8-10.8)
[2024-11-09 16:38] LABS: D-Dimer < 0.27 ug/mlFEU (0.00-0.50)
== END ==
LOC: REG 14:33
PROVIDERS: ATTENDING PHYSICIAN Physician Assistant
DX: R07.81 Pleurodynia (principal)
CPT/HCPCS: 36415; 71046; 85025; 85379

== ENCOUNTER 2025-08-27 16:52 | Emergency (ER) | payer OTHER, SELFPAY ==
[2025-08-27] VITALS (9 sets, daily range): BP systolic 114–138; BP diastolic 68–97; BMI 23.8
[2025-08-27 17:59] LABS: Hematocrit 39.2 % (37.0-47.0); Hemoglobin 13.6 g/dL (12.0-16.0); Mean Corp Hgb Conc. 34.7 g/dL (33.0-37.0); Mean Corpuscular Volume 86.7 fL (81.0-99.0); Nucleated Red Blood Cells % 0 %; Platelet Count 276 10^3/uL (130-400); Red Cell Dist. Width 12.0 % (11.5-14.5)
[2025-08-27] MEDS: NSS 1000 IV (18:01)
[2025-08-27] MEDS: ZOFRAN 4 MG IV (18:07)
[2025-08-27] MEDS: DILAUDID 0.5 MG IV (18:15)
[2025-08-27] MEDS: PROTONIX IV 40 MG IV (18:21)
[2025-08-27 18:25] LABS: ALT (SGPT) 80 U/L (0-35); AST (SGOT) 58 U/L (14-36); Albumin 4.7 g/dl (3.5-5.0); Alkaline Phosphatase 90 U/L (38-126); Blood Urea Nitrogen 13 mg/dl (7-17); Calcium 10.7 mg/dl (8.4-10.2); Carbon Dioxide 23 mmol/L (22-30); Chloride 103 mmol/L (98-107); Estimated Creatinine Clearance 65 ml/min; Glucose 97 mg/dl (70-99); Lipase 85 U/L (23-300); Potassium 4.0 mmol/L (3.5-5.1); Sodium 134 mmol/L (135-145); Total Protein 7.3 g/dl (6.3-8.2); eGFR > 60.00
--- NOTE | 2025-08-27 19:16 | ED.GENMED ---
History of Present Illness
General
Chief Complaint: Abdominal Pain
Source: patient
Exam Limitations: none
Time Seen by Provider: 08/27/25 17:22
Nursing documentation reviewed up to this point in time: agreed with
History of Present Illness
History of Present Illness:
Patient with history of fibromyalgia and previous history of alcohol abuse, presents to ED secondary to worsening abdominal pain associated with nausea and vomiting over the past 3 days. Denies fever or chills. Abdominal pain described as sharp,
with intermittent episode of back pain, without any alleviating or exacting factors. Denies recent change in medications or diet. Denies sick contact. Denies recent travel. Denies previous history of similar symptoms. Patient medical history
also significant PE, for which she is currently taking Eliquis 2.5 mg twice daily. Patient states that her back pain is similar to PE that she had experienced in the past.
Past History
Past History
ED Past Medical History: Fibromyalgia, Psychiatric (Anxiety), Other (DVT PE) and Other (History of migraines, Lyme disease in 2004. Alcohol abuse)
ED Past Surgical History: Cholecystectomy and Gynecological
Social History
Tobacco: Former smoker
Alcohol: Chronic alcoholic (last alcohol intake)
Drug: None
Personal:
Living: with family
Employment: Employed
Family History
Family History: Hypertension and CAD
Review of Systems
Review of Systems
Allergies reviewed?: Yes
All Other Systems: ROS reviewed and negative except as documented in HPI and ROS
Constitutional: Reports no symptoms
Cardiac: Reports no symptoms
ABD/GI: Reports abdominal pain, nausea and vomiting; Denies diarrhea
Musculoskeletal: Reports no symptoms
Skin: Reports no symptoms
Neurological: Reports no symptoms
Phy Exam
Physical Exam
Physical Exam:
Physical Exam
General: mild painful distress, not acutely ill. afebrile
Head: nc/at. eomi
Neck: supple. normal range of motion.
Heart: s1/s2 regular rate and rhythm
Lungs: no acute respiratory distress. clear bilaterally
Abdomen: normal bowel sounds. not tender.
Neuro: alert and oriented x 3. no focal neurological deficits
Skin: no rash
Psychiatric: well kept. interactive and cooperative
Extremities: no edema. no calf tenderness.
Course
Orders/Labs/Results
Orders:
Orders
08/27/25 16:58
Electrocardiogram (*1) Urgent
Reason for Study: Chest Pain
EKG- Treatment ONCE
08/27/25 17:18
EKG [Electrocardiogram (*1)] Urgent
Reason for Study: Chest Pain
08/27/25 17:19
EKG- Treatment ONCE
08/27/25 17:42
0.9% Sodium Chloride 1000 ml [Nss] 1,000 ml IV BOLUS
HYDROmorphone [Dilaudid] 0.5 mg IV NOW STA
Ondansetron Injectable [Zofran] 4 mg IV NOW STA
Pantoprazole [Protonix IV] 40 mg IV NOW STA
08/27/25 17:51
Complete Blood Count/With Diff Urgent
Comprehensive Metabolic Panel Urgent
Lipase Urgent
08/27/25 19:04
Lorazepam [Ativan] 1 mg IV NOW STA
08/27/25 19:05
CT Abd/pelvis W Iv Cont Urgent
Comment:
Reason For Exam: periumbilical pain
08/27/25 20:03
Urinalysis Reflex To Culture Urgent
Date Specimen was Collected: 08/27/25
Time Specimen was Collected: 19:49
08/27/25 22:00
Ondansetron Orally Disint [Zofran Odt (Orally Disintegrating)] 4 mg PO NOW STA
Abnormal Lab Results
08/27/25 08/27/25
17:51 20:03
Sodium 134 L mmol/L
(135-145)
Calcium 10.7 H mg/dl
(8.4-10.2)
AST 58 H U/L
(14-36)
ALT 80 H U/L
(0-35)
Urine Ketones 2+ A
(Negative)
08/27/25 17:51
08/27/25 17:51
Vital Signs
Initial and Last Documented VS:
Initial Vital Signs
Resp
24
08/27/25 16:53
Last Documented Vital Signs
Temp Pulse Resp BP Pulse Ox
98.1 F 73 18 114/81 99
08/27/25 17:33 08/27/25 22:22 08/27/25 22:22 08/27/25 22:22 08/27/25 22:22
MDM/Problems Addressed
MDM/Problems Addressed:
Patient with an unremarkable workup in ED, including blood work and CT abdomen pelvis. Patient reports significant improvement in symptoms after treatment in ED. Patient otherwise remains afebrile, hemodynamically stable, and resting comfortably
after treatment. History and exam consistent with likely nonspecific viral illness. At this time, patient feels comfortable going home with recommendation to continue fluid administration home, with consideration to return to ED with worsening
symptoms, i.e. fever/worsening pain/vomiting. Patient will be discharged in stable condition, to the care of her spouse.
*Pulse Oximetry
SaO2: 98
Oxygen Mode of Delivery: Room air
Patient hypoxic: no
*Critical Care Note
Total Time (30-74mins, 75-104mins- exclusive of procedures): Not Applicable
ED Attending Note
-
Portions of this chart may have been created with voice recognition software.� Occasional wrong word or��sound alike� substitutions may have occurred due to the inherent limitations of voice recognition software.
Discharge Plan
Departure
Patient Disposition: Home (Routine Discharge)
Date of Disposition: 08/27/25
Time of Disposition: 22:01
Patient with high blood pressure during this ER visit?: Yes
Discharge Problem:
Abdominal pain
Instructions: Abdominal Pain
Prescriptions:
New
ondansetron 4 mg Tablet,Disintegrating
4 mg PO TIDPRN PRN (Reason: nausea/vomiting) Qty: 12 0RF
No Action
biotin 1 MG tablet
1 mg PO DAILY
escitalopram oxalate 20 mg tablet
20 mg PO DAILY
vitamin B complex Tablet
1 tab PO DAILY
hydroxyzine pamoate 25 mg Capsule
50 mg PO QIDPRN PRN (Reason: mild anxiety)
Eliquis 2.5 mg Tablet
2.5 mg PO BID
solifenacin [Vesicare] 10 mg Tablet
10 mg PO DAILY
Referrals:
Kian Moreno MD [Family Provider, Family Practice]
Activity Restrictions/Additional Instructions:
As discussed, please follow-up with your primary care physician for reevaluation. Please consider return to ED with worsening symptoms, i.e. fever/worsening pain/vomiting. Your prescription has been sent electronically to [facility] pharmacy in
[place].
Interventions
Interventions:
*Risk Screen - Suicide Last Done: 08/27/25 16:53
*General Assessment Last Done: 08/27/25 16:53
*Neglect/Abuse Screening Last Done: 08/27/25 16:53
*ED COVID-19 Vaccine History Last Done: 08/27/25 17:00
*ED Influenza Vaccine History Last Done: 08/27/25 17:00
*Nursing Disposition Last Done: 08/27/25 22:43
BR-Jatwm[facility]-Oisuczvfes Assessment Last Done: 08/27/25 17:35
Discharge Date and Time
Discharge Date/Time: 08/27/25 22:45
Print Language: SRI LANKAN
[2025-08-27] MEDS: ATIVAN 1 MG IV (19:17)
[2025-08-27 20:12] LABS: Urine Character Clear (Clear)
[2025-08-27] MEDS: ZOFRAN ODT (ORALLY DISINTEGRATING) 4 MG PO (22:24)
== END 2025-08-27 22:45 | disposition home or self-care (01) ==
LOC: EMR 16:52
PROVIDERS: Emergency Medicine; EMERGENCY PHYSICIAN Emergency Medicine; FAMILY PHYSICIAN Student in an Organized Health Care Education/Training Program; REFERRING PHYSICIAN Internal Medicine
DX: R10.33 Periumbilical pain (principal); R03.0 Elevated blood-pressure reading, without diagnosis of hypertension; M79.7 Fibromyalgia; F41.9 Anxiety disorder, unspecified; Z79.01 Long term (current) use of anticoagulants; Z86.711 Personal history of pulmonary embolism; Z86.718 Personal history of other venous thrombosis and embolism; Z87.891 Personal history of nicotine dependence; Z82.49 Family history of ischemic heart disease and other diseases of the circulatory system
CPT/HCPCS: 99284; 96374; 96375 ×3; 96361; 74177; 80053; 81003; 83690; 85025; 93005; Q9967